=== PATIENT | female | born 1995 ===

== ENCOUNTER 2023-03-06 22:37 | Emergency (ER) | payer SELFPAY ==
[2023-03-06 23:51] LABS: BASOPHILS % (AUTO) 0 % (0-10); EOSINOPHILS # (AUTO) 0.1 10^3/uL (0.0-0.3); EOSINOPHILS % (AUTO) 1 % (0-10); HEMATOCRIT 41 % (35-52); HEMOGLOBIN 13.8 g/dL (11.5-16.0); LYMPHOCYTES # (AUTO) 2.8 10^3/uL (1.0-4.0); LYMPHOCYTES % (AUTO) 23 % (12-44); MEAN CORPUSCULAR HEMOGLOBIN 29 pg (25-34); MEAN CORPUSCULAR HGB CONC 34 g/dL (32-36); MEAN CORPUSCULAR VOLUME 87 fL (80-99); MEAN PLATELET VOLUME 9.8 fL (9.0-12.2); MONOCYTES % (AUTO) 8 % (0-12); NEUTROPHILS # (AUTO) 8.6 10^3/uL (1.8-7.8); NEUTROPHILS % (AUTO) 69 % (42-75); PLATELET COUNT 259 10^3/uL (130-400); WHITE BLOOD COUNT 12.5 10^3/uL (4.3-11.0)
[2023-03-06 23:54] LABS: ALBUMIN 4.6 GM/DL (3.2-4.5)
[2023-03-06 23:55] LABS: AMYLASE 23 U/L (25-125); CHLORIDE 104 MMOL/L (98-107); POTASSIUM 3.7 MMOL/L (3.6-5.0); SODIUM 138 MMOL/L (135-145)
[2023-03-06 23:56] LABS: CALCIUM 9.3 MG/DL (8.5-10.1)
[2023-03-06 23:57] LABS: GLUCOSE 93 MG/DL (70-105); TOTAL PROTEIN 7.9 GM/DL (6.4-8.2)
[2023-03-06 23:58] LABS: CARBON DIOXIDE 21 MMOL/L (21-32)
[2023-03-06 23:59] LABS: BILIRUBIN,TOTAL 0.8 MG/DL (0.1-1.0)
[2023-03-07] LABS: ALKALINE PHOSPHATASE 82 U/L (40-136); CREATININE SERUM 0.71 MG/DL (0.60-1.30); GFR ESTIMATED 119
[2023-03-07 00:02] LABS: BUN/CREATININE RATIO 15
[2023-03-07 00:03] LABS: ALANINE AMINOTRANSFERASE 22 U/L (0-55)
[2023-03-07 00:04] LABS: LIPASE 15 U/L (8-78)
[2023-03-07] MEDS ORDERED: KETOROLAC 30 MG/ML VIAL IVP STA (00:29)
[2023-03-07] MEDS ORDERED: LACTATED RINGERS 1,000 ML IV ONE (00:30)
[2023-03-07 00:54] LABS: BILIRUBIN,URINE NEGATIVE (NEGATIVE); CLARITY,URINE SL CLOUDY; COLOR,URINE YELLOW; GLUCOSE, URINE (UA) NEGATIVE (NEGATIVE); KETONES,URINE NEGATIVE (NEGATIVE); LEUKOCYTE ESTERASE ,URINE 3+ (NEGATIVE); NITRITE,URINE NEGATIVE (NEGATIVE); PROTEIN,URINE 2+ (NEGATIVE)
--- NOTE | 2023-03-07 01:18 | ED Abdominal Pain ---
General Chief Complaint: Abdominal/GI Problems Stated Complaint: ABDOMINAL PAIN Nursing Triage Note: PT AMB TO RM 4 WITH CC OF L LOWER ABD PAIN THAT RADIATES TO L FLANK SINCE 03/01. PT REPORTS BURNING WITH URINATION. PT CONCERN FOR UTI. 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[employer]) Exam Limitations: Language Barrier (PT DOES NOT SPEAK JAPANESE) History of Present Illness Date Seen by Provider: Mar 06, 2023 Allergies and Home Medications Allergies Coded Allergies: No Known Drug Allergies (Unverified , 03/07/23) Past Ubhutry-Dswkhr-Otmfrs Hx Patient Social History Tobacco Use?: No Substance use?: No Alcohol Use?: No Pt feels they are or have been: No Physical Exam Vital Signs Vital Signs - First Documented 03/06/23 23:22 Pulse 114 Resp 18 B/P (MAP) 125/100 (108) Pulse Ox 98 O2 Delivery Room Air Capillary Refill : Less Than 3 Seconds Height/Weight/BMI Height: '" Weight: lbs. oz. kg; BMI Method: Progress/Results/Core Measures Results/Orders Lab Results Laboratory Tests Test 03/06/23 23:26 03/07/23 00:23 Range/Units White Blood Count 12.5 H 4.3-11.0 10^3/uL Red Blood Count 4.71 3.80-5.11 10^6/uL Hemoglobin 13.8 11.5-16.0 g/dL Hematocrit 41 35-52 % Mean Corpuscular Volume 87 80-99 fL Mean Corpuscular Hemoglobin 29 25-34 pg Mean Corpuscular Hemoglobin Concent 34 32-36 g/dL Red Cell Distribution Width 12.8 10.0-14.5 % Platelet Count 259 130-400 10^3/uL Mean Platelet Volume 9.8 9.0-12.2 fL Immature Granulocyte % (Auto) 0 % Neutrophils (%) (Auto) 69 42-75 % Lymphocytes (%) (Auto) 23 12-44 % Monocytes (%) (Auto) 8 0-12 % Eosinophils (%) (Auto) 1 0-10 % Basophils (%) (Auto) 0 0-10 % Neutrophils # (Auto) 8.6 H 1.8-7.8 10^3/uL Lymphocytes # (Auto) 2.8 1.0-4.0 10^3/uL Monocytes # (Auto) 1.0 0.0-1.0 10^3/uL Eosinophils # (Auto) 0.1 0.0-0.3 10^3/uL Basophils # (Auto) 0.0 0.0-0.1 10^3/uL Immature Granulocyte # (Auto) 0.0 0.0-0.1 10^3/uL Sodium Level 138 135-145 MMOL/L Potassium Level 3.7 3.6-5.0 MMOL/L Chloride Level 104 98-107 MMOL/L Carbon Dioxide Level 21 21-32 MMOL/L Anion Gap 13 5-14 MMOL/L Blood Urea Nitrogen 11 7-18 MG/DL Creatinine 0.71 0.60-1.30 MG/DL Estimat Glomerular Filtration Rate 119 BUN/Creatinine Ratio 15 Glucose Level 93 70-105 MG/DL Calcium Level 9.3 8.5-10.1 MG/DL Corrected Calcium 8.5-10.1 MG/DL Total Bilirubin 0.8 0.1-1.0 MG/DL Aspartate Amino Transf (AST/SGOT) 16 5-34 U/L Alanine Aminotransferase (ALT/SGPT) 22 0-55 U/L Alkaline Phosphatase 82 40-136 U/L Total Protein 7.9 6.4-8.2 GM/DL Albumin 4.6 H 3.2-4.5 GM/DL Amylase Level 23 L 25-125 U/L Lipase 15 8-78 U/L Serum Test, Qualitative NEGATIVE NEGATIVE My Orders Orders - KARL MARTIN DO Ed Iv/Invasive Line Start (03/06/23 23:45) Urine Bedside (03/06/23 23:45) Amylase (03/06/23 23:45) Cbc With Automated Diff (03/06/23 23:45) Comprehensive Metabolic Panel (03/06/23 23:45) Lipase (03/06/23 23:45) Ua Culture If Indicated (03/06/23 23:45) Hcg,Qualitative Serum (03/07/23 00:05) Ed Iv/Invasive Line Start (03/07/23 00:29) Lactated Ringers (Lr 1000 Ml Iv Solution (03/07/23 00:30) Ketorolac Injection (Toradol Injection) (03/07/23 00:29) Ct Abd/Pelvis Wo(Kidney Stone) (03/07/23 00:29) Abdomen/Kub 1view (03/07/23 00:29) Rocephin 1gm/50 Ml Iv (1xdose) (03/07/23 01:45) Medications Given in ED Current Medications Medications Dose Ordered Sig/Ruslan Route Start Time Stop Time Status Last Admin Dose Admin Lactated Ringer's 1,000 ml @ 0 mls/hr Q0M ONCE IV 03/07/23 00:30 03/07/23 00:31 DC 03/07/23 01:01 1,000 MLS/HR Vital Signs/I&O 03/06/23 23:22 Pulse 114 Resp 18 B/P (MAP) 125/100 (108) Pulse Ox 98 O2 Delivery Room Air Blood Pressure Mean: 108 Diagnostic Imaging Comments ABDOMEN XRAY--NO ACUTE PROCESS, LARGE AMOUNT OF INTESTINAL GAS. PENDING RADIOLOGIST REVIEW CT ABDOMEN/PELVIS--PER [facility] VIA FAX AT 0109 -THICKENED BLADDER WALL, CORRELATE WITH URINALYSIS -PROMINENT LEFT RENAL PELVIS WITH SLIGHTLY THICKENED WALL, POSSIBLY RELATED TO UTI Reviewed: Reviewed by Me Departure Impression Primary Impression: Urinary tract infection Disposition: HOME, SELF-CARE Condition: Improved Departure-Patient Inst. Decision time for Depature: 01:35 Referrals: NO,LOCAL PHYSICIAN (PCP/Family) Primary Care Physician Patient Instructions: Urinary Tract Infection, Adult (DC) Add. Discharge Instructions: HOME, REST LOTS OF CLEAR LIQUIDS--WATER, BROTH, GATORADE NO COFFEE, POP OR TEA FOLLOW UP WITH [facility] OR DR OF CHOICE IN 3-4 DAYS FOR FURTHER CARE--CALL THIS MORNING TO SCHEDULE AN APPOINTMENT RETURN TO ER IF SYMPTOMS WORSEN All discharge instructions reviewed with patient and/or family. Voiced understanding. Scripts Ondansetron (Ondansetron Odt) 4 Mg Tab.rapdis 4 MG PO Q4H for Nausea/Vomiting, #10 TAB Prov: VERONICA,KALR K DO 03/07/23 Ketorolac Tromethamine (Ketorolac Tromethamine) 10 Mg Tablet 10 MG PO Q6H for Pain, #15 TAB Prov: VERONICA,KARL K DO 03/07/23 Phenazopyridine HCl (Pyridium) 200 Mg Tablet 1 TAB PO TID, #15 TAB Prov: VERONICA,KARL K DO 03/07/23 Levofloxacin (Levofloxacin) 500 Mg Tablet 500 MG PO DAILY, #10 TAB 0 Refills Prov: VERONICA,KARL K DO 03/07/23 KARL MARTIN DO Mar 07, 2023 01:17
[2023-03-07 01:36] LABS: BACTERIA,URINE NEGATIVE /HPF; RBC,URINE 25-50 /HPF; WBC,URINE >100 /HPF
[2023-03-07] MEDS ORDERED: cefTRIAXone IV/IM 1,000 MG in NS (IVPB) 50 ML IV ONE (01:45)
[2023-03-07] MEDS ORDERED: LEVO-55 PO (01:47)
[2023-03-07] MEDS ORDERED: KETO10TA PO (01:48)
[2023-03-07] MEDS ORDERED: ONDA4TAB11 PO (01:48)
[2023-03-07] MEDS ORDERED: PHEN-640 PO (01:48)
[2023-03-07 02:19] VITALS: BP 110/71
--- NOTE | 2023-03-07 07:38 | Diagnostic Imaging Report ---
PROCEDURE: CT urinary tract, rule out kidney stone. TECHNIQUE: Multiple contiguous axial images were obtained through the abdomen and pelvis without the use of intravenous contrast. Auto Exposure Controls were utilized during the CT exam to meet ALARA standards for radiation dose reduction. INDICATION: Abdominal pain. COMPARISON: None. FINDINGS: The heart is unremarkable. The lung bases are clear. There is hepatic steatosis. The gallbladder is nondistended. There is mild left-sided hydronephrosis. No obstructing calculi are seen. The urinary bladder is nondistended. There is bladder wall thickening. The spleen, pancreas, and adrenal glands have a normal appearance. There is no pathologically enlarged mesenteric or retroperitoneal adenopathy. The bowel loops are nondilated. The appendix is visualized in the right lower quadrant and has a normal appearance. There is no free fluid or free air. No acute osseous abnormalities. There is no free air, loculated collection, or adenopathy in the pelvis. IMPRESSION: 1. Bladder wall thickening with mild left-sided hydronephrosis. No obstructing calculi are seen. Findings are suggestive of urinary tract infection and correlation with UA is recommended. 2. Hepatic steatosis. Agree with overnight report. Dictated by: Dictated on workstation # [id number]
--- NOTE | 2023-03-07 08:15 | Diagnostic Imaging Report ---
REASON FOR EXAM: Abdominal pain. COMPARISON: None TECHNIQUE: 2 views of the abdomen FINDINGS: The bowel gas pattern is nondistended. No large collection of free intraperitoneal air is seen. A large amount of gas and fecal material are present in the colon. No abnormal extraosseous calcifications are present. The osseous structures are age-appropriate. IMPRESSION: Large amount of stool throughout the colon, suggestive of constipation. Dictated by: Dictated on workstation # [id number]
== END 2023-03-07 02:19 | disposition home or self-care (01) ==
LOC: ER 22:42
DX: N39.0 Urinary tract infection, site not specified (principal)
CPT/HCPCS: 36415; 74018; 74176; 80053; 81000; 82150; 83690; 84703; 85025; 87088